=== PATIENT | female | born 1950 | race Caucasian/White ===

== ENCOUNTER 2020-04-01 15:30 | Outpatient (CLI) | payer BC, SELFPAY ==
[2020-04-01 16:00] VITALS: BP 172/83; PULSE 73; RESP 18; TEMP 36.4; O2SAT 94
== END 2020-04-01 16:00 | disposition home or self-care (01) ==
LOC: INF 15:40
PROVIDERS: PCP Family Medicine; Visit Provider Allergy & Immunology
DX: J45.50 Severe persistent asthma, uncomplicated (principal)
CPT/HCPCS: 96372; J2357

== ENCOUNTER 2020-04-29 15:27 | Outpatient (CLI) | payer BC, SELFPAY ==
[2020-04-29 15:45] VITALS: BP 146/92; PULSE 77; RESP 20; TEMP 36.4
== END 2020-04-29 15:45 | disposition home or self-care (01) ==
LOC: INF 15:27
PROVIDERS: Visit Provider Allergy & Immunology
DX: J45.50 Severe persistent asthma, uncomplicated (principal)
CPT/HCPCS: 96372; J2357

== ENCOUNTER 2020-05-27 15:39 | Outpatient (CLI) | payer BC, SELFPAY ==
[2020-05-27 15:53] VITALS: BP 156/79; PULSE 69; RESP 18; TEMP 36.3; O2SAT 97
== END 2020-05-27 16:02 | disposition home or self-care (01) ==
LOC: INF 15:39
PROVIDERS: Visit Provider Allergy & Immunology
DX: J45.50 Severe persistent asthma, uncomplicated (principal)
CPT/HCPCS: 96372; J2357

== ENCOUNTER 2020-06-24 15:32 | Outpatient (CLI) | payer BC, SELFPAY ==
[2020-06-24 15:48] VITALS: BP 149/76; PULSE 70; RESP 18; TEMP 36.3
== END 2020-06-24 15:48 | disposition home or self-care (01) ==
LOC: INF 15:32
PROVIDERS: Visit Provider Allergy & Immunology
DX: J45.50 Severe persistent asthma, uncomplicated (principal)
CPT/HCPCS: 96372; J2357

== ENCOUNTER 2022-01-04 11:45 | Emergency (ER) | payer BC, SELFPAY ==
[2022-01-04 12:10] VITALS: BP 149/89; PULSE 80; RESP 19; TEMP 36.8; O2SAT 96; BMI 34.0
--- NOTE | 2022-01-04 12:29 | HMH.EDUTC ---
[facility] Disposition Clinical Impression: Sinusitis Qualifiers: Sinusitis location: unspecified location Chronicity: unspecified Qualified Code(s): J32.9 - Chronic sinusitis, unspecified Disposition: Home, Self-Care Condition on Discharge: Good Instructions: Sinusitis, DI for Sinusitis Additional Instructions: *Monitor Temp, Over the counter Motrin or Tylenol as directed/as needed Tylenol every 4 hours and Motrin every 6 hours (as long as your family doctor has told you that you can take it) for fever or pain. and straight to ER if unable to lower temp less than 101.0 after medication given *Warm salt water gargles may help to soothe the throat *Throat Lozenges *Warm fluids like tea with honey may help to soothe the throat *Sleep elevated *Humidifier/Vaporizer Take medication as prescribed Return if needed Follow up IMMEDIATELY for new or worsening symptoms or no Noticeable improvement over the next 48-72 hours. 911 for difficulty breathing or swallowing Prescriptions: Amoxicillin/Potassium Clav [Amox-Clav 875-125 mg Tablet] 1 tab PO BID #20 tab Transmission Status: Pending to [facility] methylPREDNISolone [Medrol 4mg tab] 4 mg PO DIRECTED #21 tab Transmission Status: Pending to [facility] Referrals: Sanju Segura [Primary Care Provider] - As needed Time of Disposition: 12:35 Medical Decision Making - Nadir Inquiry Pt receiving controlled substance: No Nadir was queried for this patient: No Vital Signs: 01/04/22 12:10 Temperature 98.3 F Temperature Source Oral Pulse Rate [Right Brachial] 80 Respiratory Rate 19 Blood Pressure [Right Arm] 149/89 H Blood Pressure Mean [Right Arm] 109 Blood Pressure Source [Right Arm] Automatic Cuff Blood Pressure Position [Right Arm] Sitting 02 Sat by Pulse Oximetry 96 Oxygen Delivery Method Room Air Medical Decision Narrative: Patient state that she has take augmentin and Medrol in the past without complications or reactions [facility] HPI - General Stated complaint: bilateral ear pain, congestion Time Seen by Provider: 01/04/22 12:29 Mode of Arrival: Ambulatory Source of Information: Patient Limitations: No Limitations Description of Symptoms (Recalled from Triage Doc. by RN): PATIENT C/O SINUS PRESSURE AND BILATERAL EAR PAIN X 1 WEEK HEENT Symptoms (Recalled from RN notes): Yes Resp Symptoms (Recalled from RN notes): No Skin Symptoms (Recalled from RN notes): No MS Symptoms (Recalled from RN notes): No Functional Status (Recalled from RN notes): WNL - History of Present Illness Provider Complaint: Patient states that for over a week she has been having sinus pain and pressure along with pain and pressure in her ears State that feels like it does when she has a sinus infection States that she has taken several at home tests and they have been negative - Related Data Home Medications Medication Instructions Recorded Confirmed Levothyroxine Sodium 100 mcg PO DAILY 04/01/20 05/27/20 [Levothyroxine 112mcg (0.112mg) Tab] Benazepril/Hydrochlorothiazide 1 each PO DAILY 04/29/20 05/27/20 [Benazepril-Hctz 10-12.5 mg Tab] Previous Rx's Medication Instructions Recorded Amoxicillin/Potassium Clav 1 tab PO BID #20 tab 01/04/22 [Amox-Clav 875-125 mg Tablet] methylPREDNISolone [Medrol 4mg 4 mg PO DIRECTED #21 tab 01/04/22 tab] Allergies Allergy/AdvReac Type Severity Reaction Status Date / Time No Known Allergies Allergy Verified 04/01/20 16:31 - Worker's Comp Is this a Worker's Comp case?: No [facility] History - Hepatitis A Screen Attestation statement:: This patient has been screened for Hepatitis A risk factors. I have reviewed the patient's past medical history: Yes Medical History: Reports:: Hypertension Other Medical History: Reports: Arthritis, Hypothyroidism Other Surgeries: Yes: Tubal Ligation, Other - Social History Smoking Status: Never smoker Alcohol Intake: never Occupatio
[2022-01-04 12:39] VITALS: BP 149/89; PULSE 80; RESP 19; TEMP 36.8; O2SAT 96
== END 2022-01-04 12:45 | disposition home or self-care (01) ==
PROVIDERS: Emergency Provider Nurse Practitioner; PCP Family Medicine
DX: J32.9 Chronic sinusitis, unspecified (principal)
CPT/HCPCS: 99212; G0463

== ENCOUNTER 2022-04-08 15:32 | Emergency (ER) | payer OTHER, SELFPAY ==
[2022-04-08 15:59] VITALS: BP 176/96; PULSE 97; RESP 18; TEMP 36.6; O2SAT 95; BMI 36.3
--- NOTE | 2022-04-08 16:12 | EXP.UTC ---
Discharge Plan Disposition Patient Disposition: Home, Self-Care Condition: Good Prescriptions Prescriptions: New prednisone [prednisone] 20 mg tablet 20 mg PO BID 5 Days Qty: 10 0RF amoxicillin-pot clavulanate 875-125 mg Tablet 1 tab PO Q12H Qty: 20 0RF No Action levothyroxine 112 MCG tablet 100 mcg PO DAILY benazepril-hydrochlorothiazide 1 EACH tablet 1 each PO DAILY methylprednisolone 4 MG tablet 4 mg PO DIRECTED Qty: 21 0RF Rx Instructions: Take as directed on package instructions amoxicillin-pot clavulanate 1 EACH tablet 1 tab PO BID Qty: 20 0RF Referrals Follow up/Referrals: Kev Segura [Primary Care Provider] - See instructions Activity Restrictions/Add. Instructions Additional Instructions/Restrictions: Rest, fluids. Follow up with Dr Segura if not improving. Clinical Impressions Clinical Impression: Sinusitis Instructions Patient Instructions: DI for Sinusitis [place]charge ED [place] Vika [place] [facility] [place] General Stated complaint: congestion Mode of Arrival: Ambulatory Source of Information: Patient Limitations: No Limitations Time Seen by Provider: 04/08/22 16:16 Description of Symptoms (Recalled from Triage Doc. by RN): pt comes in with c/o sinus infection. symptoms ongoing for 1 week HEENT Symptoms (Recalled from RN notes): No Resp Symptoms (Recalled from RN notes): Yes Skin Symptoms (Recalled from RN notes): No MS Symptoms (Recalled from RN notes): No Functional Status (Recalled from RN notes): n/a History of Present Illness Provider Complaint: Sinus pain and pressure X 1 week. No fever. Denies ear pain or sore throat. No Vomiting or diarrhea. OTC allergy meds haven't helped. Onset (ago): week(s) (1) Relieving factors: none Exacerbating factors: none Associated symptoms: headaches Treatments prior to arrival: other (allergy pills) Related Data Home Medications Medication Instructions Recorded Confirmed levothyroxine 112 mcg tablet 100 mcg PO DAILY thyroid 04/01/20 05/27/20 benazepril 10 1 each PO DAILY blood pressure 04/29/20 05/27/20 mg-hydrochlorothiazide 12.5 mg tablet Previous Rx's Medication Instructions Recorded amoxicillin 875 mg-potassium 1 tab PO BID #20 tabs 01/04/22 clavulanate 125 mg tablet methylprednisolone 4 mg tablet 4 mg PO DIRECTED #21 tabs 01/04/22 amoxicillin 875 mg-potassium 1 tab PO Q12H #20 tabs 04/08/22 clavulanate 125 mg tablet prednisone 20 mg tablet 20 mg PO BID 5 days #10 tabs 04/08/22 Allergies Allergy/AdvReac Type Severity Reaction Status Date / Time No Known Allergies Allergy Verified 04/08/22 16:01 Worker's Comp Is this a Worker's Comp case?: No PFSH PFSH Social History Smoking Status: Never smoker alcohol intake: never current occupational status: other Travel in the last 8 weeks: None household members: spouse housing: house ROS Obtained: Yes All systems reviewed & no additional complaints except as documented Constitutional Constitutional: Reports headache(s) ENT Ears, Nose, Mouth, and Throat: Reports headache(s), Reports nasal congestion, Reports sinus pain and Reports sinus pressure Neurologic Neurologic: Reports headache(s) Physical Exam General General appearance: alert and in no apparent distress Head Head exam: atraumatic, normocephalic and normal inspection Eye Eye exam: Present normal appearance, PERRL and EOMI ENT ENT exam: Present normal exam, normal oropharynx, mucous membranes moist, TM's normal bilaterally and normal external ear exam Expanded ENT Exam Nose exam: Present sinus tenderness Neck Neck exam: Present normal inspection, full ROM and trachea midline; Absent meningismus or lymphadenopathy Chest Chest inspection: Present normal inspection and symmetric chest wall rise; Absent tenderness Respiratory Respiratory exam: Present normal lung sounds bilaterally; Absent r
[2022-04-08 16:34] VITALS: BP 176/96; PULSE 97; RESP 18; TEMP 36.6
== END 2022-04-08 16:34 | disposition home or self-care (01) ==
PROVIDERS: Emergency Provider Physician Assistant; PCP Internal Medicine
DX: J32.9 Chronic sinusitis, unspecified (principal)
CPT/HCPCS: 99212; G0463

== ENCOUNTER 2022-09-28 15:31 | Emergency (ER) | payer OTHER, SELFPAY ==
[2022-09-28 15:59] VITALS: BP 146/91; PULSE 83; RESP 16; TEMP 36.5; O2SAT 95; BMI 35.0
--- NOTE | 2022-09-28 16:02 | EXP.UTC ---
Discharge Plan Disposition Patient Disposition: Home, Self-Care Condition: Good Prescriptions Prescriptions: New prednisone 10 mg tablet 10 mg PO DIRECTED 9 Days Qty: 21 0RF Rx Instructions: Take 4 tablets daily for 3 days, then take 2 tablets daily for 3 days, then take 1 tablet daily for 3 days, then stop. amoxicillin-pot clavulanate 875-125 mg Tablet 1 tab PO Q12H Qty: 20 0RF guaifenesin [Mucinex] 600 mg tablet extended release 12hr 600 - 1,200 mg PO BIDP PRN (Reason: Congestion) Qty: 30 0RF benzonatate [benzonatate] 100 mg capsule 100 mg PO TIDP PRN (Reason: Cough) Qty: 30 0RF No Action levothyroxine 112 MCG tablet 100 mcg PO DAILY benazepril-hydrochlorothiazide 1 EACH tablet 1 each PO DAILY methylprednisolone 4 MG tablet 4 mg PO DIRECTED Qty: 21 0RF Rx Instructions: Take as directed on package instructions amoxicillin-pot clavulanate 1 EACH tablet 1 tab PO BID Qty: 20 0RF prednisone [prednisone] 20 mg tablet 20 mg PO BID 5 Days Qty: 10 0RF amoxicillin-pot clavulanate 875-125 mg Tablet 1 tab PO Q12H Qty: 20 0RF Referrals Follow up/Referrals: Kev Segura [Primary Care Provider] - See instructions Activity Restrictions/Add. Instructions Additional Instructions/Restrictions: Drink plenty of fluids. Take tylenol or ibuprofen for pain or fever. Take the medications as directed. Follow up with your regular doctor. GO TO THE ER FOR ANY WORSENING SYMPTOMS Clinical Impressions Clinical Impression: Sinusitis Stand Alone Forms Stand Alone Forms: Work/School Release Instructions Patient Instructions: Sinusitis, DI for Sinusitis Discharge ED Provider: Abel Corrigan [facility] [place] General Stated complaint: congestion nose,ears Time Seen by Provider: 09/28/22 16:02 Related Data Home Medications Medication Instructions Recorded Confirmed levothyroxine 112 mcg tablet 100 mcg PO DAILY thyroid 04/01/20 05/27/20 benazepril 10 1 each PO DAILY blood pressure 04/29/20 05/27/20 mg-hydrochlorothiazide 12.5 mg tablet Previous Rx's Medication Instructions Recorded amoxicillin 875 mg-potassium 1 tab PO BID #20 tabs 01/04/22 clavulanate 125 mg tablet methylprednisolone 4 mg tablet 4 mg PO DIRECTED #21 tabs 01/04/22 amoxicillin 875 mg-potassium 1 tab PO Q12H #20 tabs 04/08/22 clavulanate 125 mg tablet prednisone 20 mg tablet 20 mg PO BID 5 days #10 tabs 04/08/22 amoxicillin 875 mg-potassium 1 tab PO Q12H #20 tabs 09/28/22 clavulanate 125 mg tablet benzonatate 100 mg capsule 100 mg PO TIDP PRN Cough #30 caps 09/28/22 guaifenesin 600 mg tablet, 600 - 1,200 mg PO BIDP PRN 09/28/22 extended release 12 hr (Mucinex) Congestion #30 tabs prednisone 10 mg tablet 10 mg PO DIRECTED 9 days #21 09/28/22 tabs Allergies Allergy/AdvReac Type Severity Reaction Status Date / Time No Known Allergies Allergy Verified 09/28/22 16:02 [facility] Disclaimer: The information contained in this section may have been updated after the patient was seen, as this information can be updated by other users. Social History Smoking Status: Never smoker alcohol intake: never current occupational status: other Travel in the last 8 weeks: None household members: spouse housing: house ROS Obtained: Yes All systems reviewed & no additional complaints except as documented Constitutional Constitutional: Reports poor appetite Eyes Eyes: Reports system reviewed and no additional complaints, except as documented ENT Ears, Nose, Mouth, and Throat: Reports as per HPI Cardiovascular Cardiovascular: Reports system reviewed and no additional complaints, except as documented and Denies chest pain Respiratory Respiratory: Denies shortness of breath, Denies chest congestion, Reports cough, Denies stridor and Denies wheezing Gastrointestinal Gastrointestingal: Reports sy
[2022-09-28 16:25] VITALS: BP 146/91; PULSE 83; RESP 16; TEMP 36.5
== END 2022-09-28 16:30 | disposition home or self-care (01) ==
PROVIDERS: Emergency Provider Nurse Practitioner Family; PCP Internal Medicine
DX: J01.90 Acute sinusitis, unspecified (principal)
CPT/HCPCS: 99204; 99212; G0463

== ENCOUNTER 2024-02-17 11:37 | Emergency (ER) | payer OTHER, SELFPAY ==
[2024-02-17 11:55] VITALS: BP 180/81; PULSE 82; RESP 19; TEMP 36.6; O2SAT 96; BMI 32.0
--- NOTE | 2024-02-17 12:27 | EXP.UTC ---
Discharge Plan Disposition Patient Disposition: Home, Self-Care Condition: Good Prescriptions Prescriptions: New prednisone 20 mg tablet 20 mg PO BID Qty: 10 0RF benzonatate 100 mg capsule 100 mg PO BID PRN (Reason: cough) 3 Days Qty: 6 0RF No Action benazepril-hydrochlorothiazide 20-12.5 mg tablet 1 tab PO DAILY Patient Comments: Take 1 tablet by mouth Daily. levothyroxine 112 mcg tablet 112 mcg PO DAILY Patient Comments: Take 1 tablet by mouth Daily. Xhance 93 mcg/actuation aerosol breath activated 1 spray INTRANASAL BID Patient Comments: USE 1 SPRAY IN EACH NOSTRIL TWICE DAILY DIRECTED Referrals Follow up/Referrals: Kev Segura [Primary Care Provider] - See instructions Activity Restrictions/Add. Instructions Additional Instructions/Restrictions: No sign of a bacterial infection. Likely viral. Viruses can take 7-14 days to run their course. Nasal saline and bulb syringe or nose Kandy to remove nasal drainage to help with nasal congestion. Hard to eat, drink, sleep with nasal congestion so important to keep this cleaned out. Monitor temp. Tylenol or Motrin as needed for pain or fever Encourage fluids, water, Gatorade, Powerade, Pedialyte if /toddler/child Warm salt water gargles Warm fluids Sore throat lozenges Sleep elevated Humidifier/vaporizer Follow-up immediately for new or worsening symptoms or no noticeable improvement over the next 48-72 hours. Clinical Impressions Clinical Impression: Upper respiratory infection, viral Instructions Patient Instructions: DI for Viral Upper Respiratory Infection -- Adult Print Language Print Language: Maltese Discharge ED [facility]Brandon [facility] [place] HPI General Stated complaint: kalee, cough Mode of Arrival: Ambulatory Source of Information: Patient Limitations: No Limitations Time Seen by Provider: 02/17/24 12:30 Description of Symptoms (Recalled from Triage Doc. by RN): PATIENT C/O CONGESTION, RUNNY NOSE, AND COUGH THAT IS WORSE AT NIGHT X 4 DAYS HEENT Symptoms (Recalled from RN notes): Yes Resp Symptoms (Recalled from RN notes): Yes Skin Symptoms (Recalled from RN notes): No MS Symptoms (Recalled from RN notes): No Functional Status (Recalled from RN notes): WNL History of Present Illness Provider Complaint: 73-year-old female presents for nasal congestion, cough, and runny nose for 4 days patient states coughing is worse at night Related Data Home Medications ?Medication ?Instructions ?Recorded ?Confirmed benazepril 20 1 tab PO DAILY 02/17/24 02/17/24 mg-hydrochlorothiazide 12.5 mg tablet fluticasone propionate 93 1 spray intranasal BID 02/17/24 02/17/24 mcg/actuation breath activated aerosol (Xhance) levothyroxine 112 mcg tablet 112 mcg PO DAILY 02/17/24 02/17/24 Previous Rx's ?Medication ?Instructions ?Recorded benzonatate 100 mg capsule 100 mg PO BID PRN cough 3 days #6 02/17/24 caps prednisone 20 mg tablet 20 mg PO BID #10 tabs 02/17/24 Allergies Allergy/AdvReac Type Severity Reaction Status Date / Time No Known Allergies Allergy Verified 09/28/22 16:02 Worker's Comp Is this a Worker's Comp case?: No [facility] Disclaimer: The information contained in this section may have been updated after the patient was seen, as this information can be updated by other users. Medical History , [employer]) Liver disease Asthma Hyperlipidemia Hypertension Social History , [employer]) Smoking Status: Never smoker alcohol intake: never current occupational status: other Travel in the last 8 weeks: None household members: spouse housing: house ROS Obtained: Yes Systems reviewed as appropriate & no additional complaints except as documented Physical Exam General General appearance: alert and in no apparent distress Eye Eye exam: Present normal appearance and PERRL ENT ENT exam: Present normal exam, normal oropharynx, mucous membranes moist and TM's normal bilaterally Respiratory Respiratory exam: Present wheezes Cardiovascular Cardiovascular exam: Present regular rate and normal rhythm Neurological Exam Neurological exam: Present alert and oriented X3 Skin Skin exam: Present warm and intact Medical Decision Making Medical Records Medical records reviewed: Yes I reviewed the patient's medical records. Nadir Inquiry Pt receiving controlled substance: No Nadir was queried for this patient: No Vital Signs: 02/17/24 11:55 Temperature 97.9 F Temperature Source Oral Pulse Rate [Left Brachial] 82 Respiratory Rate 19 Blood Pressure [Left Arm] 180/81 H Blood Pressure Mean [Left Arm] 114 Blood Pressure Source [Left Arm] Automatic Cuff Blood Pressure Position [Left Arm] Sitting 02 Sat by Pulse Oximetry 96 Oxygen Delivery Method Room Air
[2024-02-17 12:42] VITALS: BP 180/81; PULSE 82; RESP 19; TEMP 36.6; O2SAT 96
[2024-02-17 13:14] LABS: Coronavirus 19, PCR Not Detected (NotDetected); Influenza A, PCR Not Detected (NotDetected); Influenza B, PCR Not Detected (NotDetected)
== END 2024-02-17 12:46 | disposition home or self-care (01) ==
PROVIDERS: Emergency Provider Nurse Practitioner Family; PCP Internal Medicine
DX: R05.9 Cough, unspecified (principal); J06.9 Acute upper respiratory infection, unspecified; B34.9 Viral infection, unspecified
CPT/HCPCS: 87636; 99212; 99214; G0463